=== PATIENT | female | born 1950 | race Caucasian/White ===

== ENCOUNTER 2023-01-06 13:46 | Observation (INO) ==
[2023-01-06] MEDS ORDERED: ASPIRIN CHEWABLE PO STA (13:55)
[2023-01-06] MEDS ORDERED: NITROSTAT SL PRN (13:56)
--- NOTE | 2023-01-06 14:00 | ED.PDOC ---
General ED Provider: Dr. RASHEED YADAV MD Chief Complaint: Chest Pain Stated Complaint: Chest pain that started 30 minutes ago 72-year-old female presents the ER via private vehicle for chest pain going into her neck and back that started 30 minutes ago. Patient states she was sitting watching TV. Describes it as an intense pain that makes her feel very lightheaded and short of breath. She has never had anything like this before. Has not recently eaten any food. Last meal was this morning. Denies any belching. No vomiting. Denies cardiac history of stress test. No recent travel history, prolonged immobilization. Time Seen by Provider: 01/06/23 13:55 Mode of Arrival: Wheelchair Information Source: Patient Primary Care Provider: ASHLIE WILLSON MD Nursing and Triage Documentation Reviewed and Agree: Yes Cardiovascular Complaint Exam Chest Pain Complaint/Exam Onset: Sudden Duration: 30 minutes ago Symptoms Are: Still present Timing: Constant Initial Severity: Severe Current Severity: Severe Location: Reports Midsternal Pain Radiates: Reports Back and Neck Character: Reports Dull and Aching Aggravating: Reports None Alleviating: Reports None Associated Signs and Symptoms: Reports Back pain, Dizziness and Short of air Related Surgical History: Reports None TAD Risk Factors: Reports None Pulmonary Embolism Risk Factors: Reports None Review of Systems Review Of Systems Constitutional: Reports No symptoms All Other Systems: Reviewed and Negative FOR[facility]LY [facility] Medical History Cellulitis and abscess of leg L03.119 - Cellulitis of unspecified part of limb (ICD-10) L02.419 - Cutaneous abscess of limb, unspecified (ICD-10) FH: cholecystectomy Z83.79 - Family history of other diseases of the digestive system (ICD-10) Family History Mother Acute rheumatoid arthritis Diabetes FATHER Cancer MATERNAL GRANDMOTHER Cancer Hypertension Social History Smoking and tobacco status: Former smoker Tobacco: How many years used: 10 How long ago did patient quit smokin years ago Second hand smoke exposure: No Alcohol intake: current Alcohol intake frequency: a few times a week Counseling given: No Substance use type: does not use Counseling given: No Counseling provided: none Amirah/uatsdin: SABIANISM Special amirah needs: No Agree to transfusion: No Household members: children Housing: house Marital status: S SINGLE Lives independently: Yes Number of children: 2 Number of grandchildren: 2 Highest education level completed: some college, no degree service: No long term: No Current occupational status: retired Current occupational exposures/hazards: No History of recent travel: Yes Do you think of yourself as: straight/heterosexual Current gender identity: female Seatbelt use: always Surgical History Gastric bypass status for obesity Z98.84 - Bariatric surgery status (ICD-10) H/O bladder repair surgery Z98.890 - Other specified postprocedural states (ICD-10) H/O breast biopsy Z98.890 - Other specified postprocedural states (ICD-10) H/O: hysterectomy Z90.710 - Acquired absence of both cervix and uterus (ICD-10) History of tonsillectomy and adenoidectomy Z98.890 - Other specified postprocedural states (ICD-10) Female Reproductive History Menstrual Hx Hysterectomy: Yes Hx Tubal Ligation: Yes Physical Exam Physical Exam Appearance: Reports Well-nourished Ill-appearing: None Pain Distress: Moderate Eyes: Reports EOMI ENT: Reports Ears normal Neck: Supple Respiratory: Reports Airway patent and Breath sounds clear Cardiovascular: Reports RRR, Pulses normal, No rub, No murmur and Other (Symmetric and palpable pulses bilateral radials, bilateral dorsalis pedis) GI/: Reports Soft and Nontender Musculoskeletal: Reports Normal strength, No edema and No calf tenderness Skin: Reports Warm, Dry and Normal color Neurological: Reports Oriented Psychiatric: Reports Affect appropriate Interpretation EKG Interpretation EKG Interpretation By: ED Physician Time of EKG #1: 13:54 Rate: Normal Rhythm: Sinus Ectopy: None Treichlers: NL ST Segment: Normal Interpretation: no ST elevation, no changes Time of EKG #2: 14:12 Rate: Normal Rhythm: Sinus Ectopy: None Treichlers: NL ST Segment: Normal EKG Interpretation: No change from earlier, no ST elevation Critical Care Note Critical Care Note Total Critical Care Time (mins): 30 Course Course 01/06/23 14:00 01/06/23 14:00 Orders, Labs, Meds: Lab Review 01/06/23 14:00 WBC 9.31 RBC 4.03 L Hgb 13.8 Hct 40.8 MCV 101.2 H MCH 34.2 H MCHC 33.8 RDW Coeff of Marco 13.9 Plt Count 237 Immature Gran % (Auto) 0.1 Neut % (Auto) 53.4 Lymph % (Auto) 35.0 Dougherty % (Auto) 8.5 Eos % (Auto) 2.6 Baso % (Auto) 0.4 Neut # (Auto) 5.0 Lymph # (Auto) 3.3 Dougherty # (Auto) 0.8 Eos # (Auto) 0.2 Baso # (Auto) 0.0 Immature Gran # (Auto) 0.0 Sodium 136.0 Potassium 4.49 Chloride 105.6 Carbon Dioxide 26.5 Anion Gap 8.39 BUN 9.6 Creatinine 0.59 L Estimated GFR (MDRD) 101.00 BUN/Creatinine Ratio 16.27 Glucose 91.3 Lactic Acid 1.28 Calcium 9.02 Total Bilirubin 0.53 AST 26.3 ALT 14.3 Alkaline Phosphatase 107.1 Troponin I < 0.012 NT-Pro-B Natriuret Pep 47 Total Protein 6.86 Albumin 3.92 Globulin 2.94 Albumin/Globulin Ratio 1.33 D-Dimer 1401.42 H Orders Category Date Time Status ADMIT OBSERVATION [PLACE PATIENT OBSERVATION] .TO ADMISSION 01/06/23 16:42 Ordered MEDSURG (MONITORED BED) EKG-(ED ONLY) Stat CARDIO 01/06/23 13:55 Completed EKG-(ED ONLY) Stat CARDIO 01/06/23 14:09 Completed NPO REMINDER: IMAGING ONCE CARE 01/06/23 14:50 Active TELEMETRY MONITORING TELE CARE 01/06/23 16:43 Ordered ED IV/MEDIPORT/POWERPORT .ONCE EMERGENCY 01/06/23 13:56 Active CBC W/ AUTO DIFF Stat LAB 01/06/23 14:00 Completed CMP [COMPREHENSIVE METABOLIC PANEL] Stat LAB 01/06/23 14:00 Completed D-DIMER Stat LAB 01/06/23 14:00 Completed ED PROBNP [NT-PROBNP(ED)] Stat LAB 01/06/23 14:00 Completed LACTIC ACID Stat LAB 01/06/23 14:00 Completed TROPONIN I Stat LAB 01/06/23 14:00 Completed 0.9 % Sodium Chloride [Saline Flush] Meds 01/06/23 13:55 Active 1 syr IVF PRN PRN Aspirin [Aspirin Chewable] Meds 01/06/23 13:55 Discontinued 324 mg PO ONCE STA Nitroglycerin [Nitrostat] Meds 01/06/23 13:56 Active 0.4 mg SL Q5MIN X 3 DOSES PRN CHEST, 1V AP ONLY Stat RADS 01/06/23 13:55 Completed CTA ANGIO CHEST Stat RADS 01/06/23 14:50 Completed Medications Generic Name Dose Route Start Last Admin Trade Name Freq PRN Reason Stop Dose Admin Nitroglycerin 0.4 mg 01/06/23 13:56 01/06/23 14:05 Nitroglycerin 0.4 Mg Tab.Subl SL 0.4 mg Q5MIN X 3 DOSES PRN Administration Chest Pain Sodium Chloride 1 syr 01/06/23 13:55 01/06/23 14:06 0.9% Sodium Chloride 10 Ml Disp.Syrin IVF 1 syr PRN PRN Administration To flush IV Discontinued Medications Generic Name Dose Route Start Last Admin Trade Name Freq PRN Reason Stop Dose Admin Aspirin 324 mg 01/06/23 13:55 01/06/23 14:04 Aspirin 81 Mg Tab.Chew PO 01/06/23 13:56 324 mg ONCE STA Administration Patient was given aspirin and 1 sublingual nitro. Took her pain from a 10 to a 2. Repeat EKG performed showing no changes. Nothing to suggest acute ischemia at this time. 3:10 PM Laboratory evaluation shows elevated D-dimer. With pain going into back we will proceed with CTA to rule out dissection. Pain continues to be controlled at a 2 out of 10. 3:15 PM Cardiac enzyme resulted and is negative. Still awaiting CTA. 4:44 PM Patient's laboratory evaluation is complete. CT scan demonstrates a lytic lesi on on T4, lytic lesion on a rib as well as some adenopathy in her left inferior hilar region of the lung. Patient is a non-smoker for the last 20 years but does have a smoking history. She does live with smokers who smoke outside. She states that up until COVID she was getting routine mammograms and colonoscopies and never had an abnormal study. She has been made aware of her results. She has also been made aware that we will not be performing any additional testing in the hospital regarding these findings due to the inability to work them up as an inpatient status. She understands this. However, given her chest pain and complete resolution with sublingual nitro, it is recommended that she be admitted to the hospital for rule out cardiac testing. She is agreeable to this. Vital Signs: Temp Pulse Resp BP Pulse Ox 01/06/23 13:58 98.1 F 88 20 187/99 H 98 JUSTINA Risk Score Age >/= 65: Yes >/= 3 CAD Risk Factors: No Known CAD (Stenosis >/= 50%): No ASA Use in Past 7 Days: No Severe Angina (>/= 2 episodes in 24 hours): No EKG ST Changes >/= 0.5mm: No Postive Cardiac Marker: No JUSTINA Total Score: 1 JUSTINA Risk Score: Risk Score Odds of by 30D 0 0.1 (0.1-0.2) 1 0.3 (0.2-0.3) 2 0.4 (0.3-0.5) 3 0.7 (0.6-0.9) 4 1.2 (1.0-1.5) 5 2.2 (1.9-2.6) 6 3.0 (2.5-3.6) 7 4.8 (3.8-6.1) Discharge Plan Discharge Patient Disposition: PLACED OBSERVATION Discharge Problem: Chest pain, Lytic bone lesions on xray Did you review [place] [employer]ENTICE for ALL controlled substances?: Not Applicable ED Provider: RASHEED YADAV Condition: Good Physician Progress Note: []
[2023-01-06 14:14] LABS: BASOPHILS % (AUTO) 0.4 % (0.0-3.0); EOSINOPHILS # (AUTO) 0.2 K/ul (0.0-0.7); EOSINOPHILS % (AUTO) 2.6 % (0.0-7.0); HEMATOCRIT 40.8 % (37.0-47.0); HEMOGLOBIN 13.8 g/dl (12.0-16.0); IMMATURE GRANULOCYTE % (AUTO) 0.1 % (0.0-5.0); LYMPHOCYTES # (AUTO) 3.3 K/uL (0.60-3.4); MEAN CORPUSCULAR HEMOGLOBIN 34.2 pg (27.0-31.0); MEAN CORPUSCULAR HGB CONC 33.8 (31.8-35.4); MEAN CORPUSCULAR VOLUME 101.2 fl (81.0-99.0); MONOCYTES # (AUTO) 0.8 K/uL (0.4-2.0); MONOCYTES % (AUTO) 8.5 (0-10); NEUTROPHILS % (AUTO) 53.4 % (42.2-75.2); PLATELET COUNT 237 10^3/uL (140-440); RDW COEFFICIENT OF VARIATION 13.9 % (11.6-14.8); RED BLOOD COUNT 4.03 10^6/ul (4.20-5.40); WHITE BLOOD COUNT 9.31 K/ul (4.6-10.2)
--- NOTE | 2023-01-06 14:45 | DI ---
EXAMINATION: AP CHEST RADIOGRAPH. HISTORY: Chest pain COMPARISON: 09/28/2022 FINDINGS: Minimal left basilar streaky opacity is identified. A medial right basilar nodular opacity is seen me asuring 1.0 cm. No pneumothorax or pleural effusion is seen. The cardiomediastinal silhouette is within normal limits. IMPRESSION: Minimal left basilar atelectasis and/or consolidation. 1.0 cm medial right basilar opacity could represent a vessel seen on-end or a pulmonary nodule. Foll ow-up CT recommended to exclude a pulmonary nodule.
[2023-01-06 15:00] LABS: ALANINE AMINOTRANSFERASE 14.3 U/L (0-35); ALBUMIN 3.92 g/dL (3.5-5.0); ALKALINE PHOSPHATASE 107.1 U/L (53-141); ASPARTATE AMINO TRANSFERASE 26.3 U/L (14-36); BILIRUBIN,TOTAL 0.53 mg/dL (0.2-1.3); BLOOD UREA NITROGEN 9.6 mg/dL (7-17); CALCIUM 9.02 mg/dL (8.4-10.2); CARBON DIOXIDE 26.5 mmol/L (22-30.0); CHLORIDE 105.6 mmol/L (98-107); CREATININE 0.59 mg/dL (0.60-1.30); GLUCOSE 91.3 mg/dL (74-106); POTASSIUM 4.49 mmol/L (3.5-5.1); TOTAL PROTEIN 6.86 g/dL (6.3-8.2)
[2023-01-06 15:13] LABS: TROPONIN I < 0.012 ng/ml (0.0000-0.120)
--- NOTE | 2023-01-06 16:31 | CT ---
EXAM: CHEST CT ANGIOGRAM WITH IV CONTRAST (AORTA) HISTORY: Chest pain. Radiating to the back TECHNIQUE: CTA acquisition of the chest from the thoracic inlet to the upper abdomen following IV con trast administration timed to filling of the aorta. IV Contrast: None. 3D/MIP/VR images were utilized. CT Dose Reduction Techniques Employed: Yes. COMPARISON: Chest x-ray dated 04/08/2023. FINDINGS: AORTA: No acute aortic pathology. Mild calcified atherosclerotic plaque. -Sinuses of Valsalva: 3.3 cm. -Ascendin.5 cm. -Arch: 2.4 cm. Proximal branch vessels are normal in configuration without significant stenosis. -Proximal Descendin.4 cm. -Distal Descendin.3 cm. CHEST: Lines, Tubes, Devices: None. Lung Parenchyma and Airways: Central airways are patent without endobronchial lesion. No focal conso lidation or interstitial disease. Minimal linear atelectasis along the left major fissure. No suspi cious pulmonary nodule. Pleural Space: No pleural effusion or thickening. No pneumothorax. Thoracic Inlet, Mediastinum, and Jinny: Thyroid gland is normal. Confluent lymphadenopathy or soft ti ssue in the left hilum superiorly surrounding the distal left main pulmonary artery and the left inte rlobar artery. Soft tissue at this site measures up to 2.1 cm. There is associated narrowing of the left interlobar artery and possibly the left lower lobe bronchus. There is atelectasis or mass william uring 2.8 x 3.4 cm in the left lower lobe inferior to the left hilum anteriorly. Heart, Vessels, and Pericardium: Pulmonary arteries are well opacified and demonstrate no evidence of pulmonary embolism. The heart chambers are not enlarged. There is no pericardial effusion or thicke lesley. There is coronary artery calcification. Bones and Soft Tissues: There are degenerative changes of the spine. There is a lytic lesion with so ft tissue mass measuring 2.1 x 1.3 cm arising from the anterior aspect of the right fourth rib on axi al image 58. There is also a large lytic lesion in the T4 vertebral body measuring 1.7 cm on axial i mage 32 and sagittal image 35 with cortical breakthrough inferiorly and posteriorly consistent with p athologic fracture. Minimal displacement of fracture fragments. Minimal loss of height at this leve l. No other lytic lesions visualized. Chest wall soft tissues are unremarkable. Upper Abdomen: Normal visualized portions of the liver, spleen, and adrenals. Surgical clips from p revious cholecystectomy. Prior gastric surgery with otilia visualized. IMPRESSION: 1. Normal CT thoracic aorta angiogram with no evidence of aortic dissection. 2. No evidence of pulmonary embolism. 3. Lytic lesion of T4 vertebral body with minimally displaced pathologic fracture suspicious for rj plasm. 4. Lytic lesion with soft tissue mass involving right fourth rib, suspicious for neoplasm. 5. No confluent lymphadenopathy or soft tissue in the left hilum superiorly and possible confluent m ass in the left infrahilar region measuring up to 3.4 cm. Findings suspicious for neoplasm. 6. Minimal linear atelectasis along the left major fissure. 7. Coronary artery calcification and atherosclerosis. 8. Degenerative changes of the spine. 9. Previous cholecystectomy and gastric surgery. 10. Otherwise unremarkable CT scan of the chest. COMMUNICATION (CRITICAL RESULT): Findings were communicated with Dr. Galan on 01/06/2023 at 1612 [facility] by Frantz Gomez MD. All CT scans are performed using dose optimization techniques as appropriate to the performed exam an d include at least one of the following: Automated exposure control, adjustment of the mA and/or kV according t o size, and the use of iterative reconstruction technique.
[2023-01-06] MEDS ORDERED: TYLENOL PO PRN (17:35)
[2023-01-06 18:14] VITALS: BMI 28.8
[2023-01-06] MEDS ORDERED: MORPHINE 2 MG/ML SYRINGE IVP ONE (20:22)
[2023-01-07 05:01] LABS: BASOPHILS % (AUTO) 0.6 % (0.0-3.0); EOSINOPHILS # (AUTO) 0.2 K/ul (0.0-0.7); EOSINOPHILS % (AUTO) 2.3 % (0.0-7.0); HEMATOCRIT 38.1 % (37.0-47.0); HEMOGLOBIN 12.7 g/dl (12.0-16.0); IMMATURE GRANULOCYTE % (AUTO) 0.1 % (0.0-5.0); LYMPHOCYTES # (AUTO) 2.5 K/uL (0.60-3.4); LYMPHOCYTES % (AUTO) 36.7 (10.0-50.0); MEAN CORPUSCULAR HEMOGLOBIN 34.4 pg (27.0-31.0); MEAN CORPUSCULAR HGB CONC 33.3 (31.8-35.4); MEAN CORPUSCULAR VOLUME 103.3 fl (81.0-99.0); MONOCYTES # (AUTO) 0.8 K/uL (0.4-2.0); MONOCYTES % (AUTO) 10.8 (0-10); NEUTROPHILS # (AUTO) 3.4 K/ul (2.0-6.9); NEUTROPHILS % (AUTO) 49.5 % (42.2-75.2); PLATELET COUNT 180 10^3/uL (140-440); RDW COEFFICIENT OF VARIATION 13.9 % (11.6-14.8); RED BLOOD COUNT 3.69 10^6/ul (4.20-5.40); WHITE BLOOD COUNT 6.93 K/ul (4.6-10.2)
[2023-01-07 05:13] LABS: ALANINE AMINOTRANSFERASE 13.6 U/L (0-35); ALBUMIN 3.59 g/dL (3.5-5.0); ALKALINE PHOSPHATASE 104.8 U/L (53-141); ASPARTATE AMINO TRANSFERASE 26.7 U/L (14-36); BILIRUBIN,TOTAL 0.75 mg/dL (0.2-1.3); BLOOD UREA NITROGEN 7.5 mg/dL (7-17); CALCIUM 8.95 mg/dL (8.4-10.2); CARBON DIOXIDE 30.4 mmol/L (22-30.0); CHLORIDE 101.3 mmol/L (98-107); CHOLESTEROL 185.5 mg/dL (0-200); CREATININE 0.62 mg/dL (0.60-1.30); GLUCOSE 100.4 mg/dL (74-106); HDL CHOLESTEROL 97.2 mg/dL (35-80); POTASSIUM 4.15 mmol/L (3.5-5.1); TOTAL PROTEIN 6.43 g/dL (6.3-8.2); TRIGLYCERIDES 67.3 mg/dL (0-150)
[2023-01-07] MEDS ORDERED: NORCO 10-325 PO STA ×2 (09:19→09:34)
[2023-01-07] MEDS ORDERED: ROBAXIN PO PRN (09:19)
[2023-01-07] MEDS: ZOFRAN 4 MG/2 ML IVP PRN (12:18)
[2023-01-07] MEDS ORDERED: LACTATED RINGERS 1,000 ML IV STA (13:40)
--- NOTE | 2023-01-07 13:41 | PCM ---
Date of Service Date Seen by Provider: 01/07/23 Time Seen by Provider: 08:30 Admit Day/Time Admission Date: 01/06/23 Admission Time: 16:42 Reason for Admission Chief Complaint: CHEST PAIN Hospital Provider Hospital Provider: BRANDON JEFF PA-C, [facility] [place] Primary Care Physician: ASHLIE WILLSON MD History of Present Illness History of Present Illness: Patient is a 72 year old female with minimal past medical history who presented to the ER for chest pain, upper back pain, and radiating cp to right side. There was concern for dissection and d dimer was elevated so cta was ordered. CTA showed no PE or dissection. However she does have lytic lesions, pathological fracture of T4, and soft tissue masses. Report as below. She states she's been having increasing pain for the past month but yesterday it was "crushing." She is feeling very anxious and upset regarding her findings. Labs unremarkable. Pain is better as of this morning. Case Discussed With Case Discussed With: Patient's case was discussed with the ER Physicians, Dr. Chel Galan. [facility] Medical History Cellulitis and abscess of leg L03.119 - Cellulitis of unspecified part of limb (ICD-10) L02.419 - Cutaneous abscess of limb, unspecified (ICD-10) FH: cholecystectomy Z83.79 - Family history of other diseases of the digestive system (ICD-10) Surgical History Gastric bypass status for obesity Z98.84 - Bariatric surgery status (ICD-10) H/O bladder repair surgery Z98.890 - Other specified postprocedural states (ICD-10) H/O breast biopsy Z98.890 - Other specified postprocedural states (ICD-10) H/O: hysterectomy Z90.710 - Acquired absence of both cervix and uterus (ICD-10) History of tonsillectomy and adenoidectomy Z98.890 - Other specified postprocedural states (ICD-10) Family History Mother Acute rheumatoid arthritis Diabetes FATHER Cancer MATERNAL GRANDMOTHER Cancer Hypertension Social History Smoking and tobacco status: Former smoker Tobacco: How many years used: 10 How long ago did patient quit smokin years ago Second hand smoke exposure: No Alcohol intake: current Alcohol intake frequency: a few times a week Counseling given: No Substance use type: does not use Counseling given: No Counseling provided: none Amirah/baptism: JAINISM Special amirah needs: No Agree to transfusion: No Household members: children Housing: house Marital status: S SINGLE Lives independently: Yes Number of children: 2 Number of grandchildren: 2 Highest education level completed: some college, no degree service: No senior care: No Current occupational status: retired Current occupational exposures/hazards: No History of recent travel: Yes Do you think of yourself as: straight/heterosexual Current gender identity: female Seatbelt use: always Allergies Allergies Allergy/AdvReac Type Severity Reaction Status Date / Time theodrenaline AdvReac Intermediate Anxiety Verified 01/06/23 13:57 Current Medications Home Medications 1 [No Reported Medications] 01/06/23 [History Confirmed 01/06/23 Last Taken Unknown] Home Acetaminophen (Acetaminophen 325 Mg Tablet) 650 mg PO Q4H PRN PRN Reason: Mild Pain Hydrocodone Bitart/Acetaminophen (Hydrocodone Bit/Acetaminophen 5/325 Mg Tablet) 1 tab PO Q6HR PRN PRN Reason: Pain Docusate Sodium (Docusate Sodium 100 Mg Capsule) 100 mg PO BID [facility] Enoxaparin Sodium (Enoxaparin Sodium 40 Mg/0.4 Ml Syr) 40 mg SUBCUT DAILY [facility] Lactated Ringer's (Lactated Ringers) 1,000 mls @ 200 mls/hr IV BOLUS STA Stop: 01/07/23 18:39 Last Admin: 01/07/23 15:31 Dose: 200 mls/hr Methocarbamol (Methocarbamol 500 Mg Tablet) 500 mg PO 3-4XD PRN PRN Reason: muscle spasm Last Admin: 01/07/23 09:38 Dose: 500 mg Nitroglycerin (Nitroglycerin 0.4 Mg Tab.Subl) 0.4 mg SL Q5MIN X 3 DOSES PRN PRN Reason: Chest Pain Last Admin: 01/06/23 14:05 Dose: 0.4 mg Ondansetron HCl (Ondansetron Hcl/Pf 4 Mg/2 Ml Sdv) 4 mg IVP Q6H PRN PRN Reason: Nausea / Vomiting Last Admin: 01/07/23 12:18 Dose: 4 mg Polyethylene Glycol (Polyethylene Glycol 17 Gm Powd.Pack) 17 gm PO DAILY TEJAS Sodium Chloride (0.9% Sodium Chloride 10 Ml Disp.Syrin) 1 syr IVF PRN PRN PRN Reason: To flush IV Last Admin: 01/06/23 14:06 Dose: 1 syr Discontinued Medications Hydrocodone Bitart/Acetaminophen (Hydrocodone Bit/Acetaminophen 10/325 Mg Tablet) 1 tab PO ONCE STA Stop: 01/07/23 09:35 Last Admin: 01/07/23 09:38 Dose: 1 tab Aspirin (Aspirin 81 Mg Tab.Chew) 324 mg PO ONCE STA Stop: 01/06/23 13:56 Last Admin: 01/06/23 14:04 Dose: 324 mg Morphine Sulfate (Morphine Sulfate 2 Mg/Ml Syringe) 2 mg IVP ONCE ONE Stop: 01/06/23 20:23 Last Admin: 01/06/23 20:45 Dose: 2 mg Review of Systems Constitutional: Denies Fever, Fatigue, Recent Weight Loss, Recent Weight Gain, Chills or Weakness Head: Reports Normocephalic and Atraumatic Eyes: Denies Vision Changes Throat: Denies Sore Throat or Difficulty Swallowing Cardiovascular: Reports Chest pain, Chest Pressure and High Blood Pressure; Denies Edema or Syncope Respiratory: Reports Cough and Shortness of air Gastrointestinal: Denies Nausea, Vomiting, Diarrhea or Abdominal pain Genitourinary: Denies Dysuria or Frequency Dermatologic: Denies Rashes Neurological: Denies Headache, Dizziness, Syncope or Seizure Psychiatric: Reports Anxiety Physical examination Most Recent Vital Signs: Most Recent Vital Signs Temperature 97.7 F 01/07/23 13:31 Temperature Source Oral 01/07/23 13:31 Temperature Source Oral 01/06/23 13:58 Pulse Rate 75 01/07/23 13:31 Respiratory Rate 16 01/07/23 13:31 Blood Pressure 140/78 01/07/23 13:33 Blood Pressure Mean 98 01/07/23 13:33 Blood Pressure Right Arm 163/82 01/06/23 17:56 Blood Pressure Location Right Arm 01/07/23 13:33 Blood Pressure Position Sitting 01/07/23 13:33 O2 Sat by Pulse Oximetry 96 01/07/23 13:31 Oxygen Delivery Method Room Air 01/07/23 13:33 Height 5 ft 6 in 01/06/23 17:56 Weight 178 lb 8 oz 01/06/23 17:56 Telemetry Type Remote Telemetry 01/07/23 13:00 Telemetry Monitoring Continues 01/07/23 13:00 Telemetry Heart Rate 74 01/07/23 13:00 EKG LA Interval 0.18 01/07/23 13:00 EKG QRS Interval 0.04 L 01/07/23 13:00 EKG QT Interval 0.31 01/06/23 19:00 Telemetry Strip Reading SR 01/07/23 13:00 Appearance: Positive Well-appearing, Well-nourished, No Apparent Distress (Anxious ) and Alert and Oriented x3 Skin: Positive [place], Warm, Good Turgor and Good Color; Negative Rashes HEENT: Positive Normocephalic and Atraumatic Neck: Positive Supple and Midline Trachea Chest/Lungs: Positive Clear to Auscultation Bilaterally; Negative Rales, Rhonci or Wheezes Heart: Positive RRR GI/: Positive Soft, Nontender, Bowel Sounds Normal and No Distention Extremities: Positive Other (+pain with palpation of thoracic spine and right paraspinal area. ) Neurological: Positive Cranial Nerves Intact, Alert, Oriented and Muscle Strength 5/5 in Upper and Lower Extremities Bilaterally Psychiatric: Positive Oriented x4, Appropriate Mood, Appropriate Affect and Normal Insight Labs This Visit Labs This Visit: Labs This Visit 01/06/23 01/06/23 01/06/23 14:00 15:00 22:55 WBC 9.31 RBC 4.03 L Hgb 13.8 Hct 40.8 MCV 101.2 H MCH 34.2 H MCHC 33.8 RDW Coeff of Marco 13.9 Plt Count 237 Immature Gran % (Auto) 0.1 Neut % (Auto) 53.4 Lymph % (Auto) 35.0 [place] % (Auto) 8.5 Eos % (Auto) 2.6 Baso % (Auto) 0.4 Neut # (Auto) 5.0 Lymph # (Auto) 3.3 [place] # (Auto) 0.8 Eos # (Auto) 0.2 Baso # (Auto) 0.0 Immature Gran # (Auto) 0.0 Sodium 136.0 Potassium 4.49 Chloride 105.6 Carbon Dioxide 26.5 Anion Gap 8.39 BUN 9.6 Creatinine 0.59 L Estimated GFR (MDRD) 101.00 BUN/Creatinine Ratio 16.27 Glucose 91.3 Hemoglobin A1c Lactic Acid 1.28 Calcium 9.02 Total Bilirubin 0.53 AST 26.3 ALT 14.3 Alkaline Phosphatase 107.1 Troponin I < 0.012 < 0.012 < 0.012 NT-Pro-B Natriuret Pep 47 Total Protein 6.86 Albumin 3.92 Globulin 2.94 Albumin/Globulin Ratio 1.33 Triglycerides Cholesterol LDL Cholesterol, Calc VLDL Cholesterol HDL Cholesterol Cholesterol/HDL Ratio D-Dimer 1401.42 H 01/07/23 04:55 WBC 6.93 RBC 3.69 L Hgb 12.7 Hct 38.1 MCV 103.3 H MCH 34.4 H MCHC 33.3 RDW Coeff of Marco 13.9 Plt Count 180 Immature Gran % (Auto) 0.1 Neut % (Auto) 49.5 Lymph % (Auto) 36.7 [place] % (Auto) 10.8 H Eos % (Auto) 2.3 Baso % (Auto) 0.6 Neut # (Auto) 3.4 Lymph # (Auto) 2.5 [place] # (Auto) 0.8 Eos # (Auto) 0.2 Baso # (Auto) 0.0 Immature Gran # (Auto) 0.0 Sodium 135.0 Potassium 4.15 Chloride 101.3 Carbon Dioxide 30.4 H Anion Gap 7.45 BUN 7.5 Creatinine 0.62 Estimated GFR (MDRD) 95.00 BUN/Creatinine Ratio 12.09 Glucose 100.4 Hemoglobin A1c 5.19 Lactic Acid Calcium 8.95 Total Bilirubin 0.75 AST 26.7 ALT 13.6 Alkaline Phosphatase 104.8 Troponin I < 0.012 NT-Pro-B Natriuret Pep Total Protein 6.43 Albumin 3.59 Globulin 2.84 Albumin/Globulin Ratio 1.26 Triglycerides 67.3 Cholesterol 185.5 LDL Cholesterol, Calc 75 VLDL Cholesterol 13 HDL Cholesterol 97.2 H Cholesterol/HDL Ratio 1.9 L D-Dimer Imaging Imaging: EXAMINATION: AP CHEST RADIOGRAPH. HISTORY: Chest pain COMPARISON: 09/28/2022 FINDINGS: Minimal left basilar streaky opacity is identified. A medial right basilar nodular opacity is seen measuring 1.0 cm. No pneumothorax or pleural effusion is seen. The cardiomediastinal silhouette is within normal limits. IMPRESSION: Minimal left basilar atelectasis and/or consolidation. 1.0 cm medial right basilar opacity could represent a vessel seen on-end or a pulmonary nodule. Follow-up CT recommended to exclude a pulmonary nodule. EXAM: CHEST CT ANGIOGRAM WITH IV CONTRAST (AORTA) HISTORY: Chest pain. Radiating to the back TECHNIQUE: CTA acquisition of the chest from the thoracic inlet to the upper abdomen following IV contrast administration timed to filling of the aorta. IV Contrast: None. 3D/MIP/VR images were utilized. CT Dose Reduction Techniques Employed: Yes. COMPARISON: Chest x-ray dated 04/08/2023. FINDINGS: AORTA: No acute aortic pathology. Mild calcified atherosclerotic plaque. -Sinuses of Valsalva: 3.3 cm. -Ascendin.5 cm. -Arch: 2.4 cm. Proximal branch vessels are normal in configuration without significant stenosis. -Proximal Descendin.4 cm. -Distal Descendin.3 cm. CHEST: Lines, Tubes, Devices: None. Lung Parenchyma and Airways: Central airways are patent without endobronchial lesion. No focal consolidation or interstitial disease. Minimal linear atelectasis along the left major fissure. No suspicious pulmonary nodule. Pleural Space: No pleural effusion or thickening. No pneumothorax. Thoracic Inlet, Mediastinum, and Jinny: Thyroid gland is normal. Confluent lymphadenopathy or soft tissue in the left hilum superiorly surrounding the distal left main pulmonary artery and the left interlobar artery. Soft tissue at this site measures up to 2.1 cm. There is associated narrowing of the left interlobar artery and possibly the left lower lobe bronchus. There is atelectasis or mass measuring 2.8 x 3.4 cm in the left lower lobe inferior to the left hilum anteriorly. Heart, Vessels, and Pericardium: Pulmonary arteries are well opacified and demonstrate no evidence of pulmonary embolism. The heart chambers are not enlarged. There is no pericardial effusion or thickening. There is coronary artery calcification. Bones and Soft Tissues: There are degenerative changes of the spine. There is a lytic lesion with soft tissue mass measuring 2.1 x 1.3 cm arising from the ant erior aspect of the right fourth rib on axial image 58. There is also a large lytic lesion in the T4 vertebral body measuring 1.7 cm on axial image 32 and sagittal image 35 with cortical breakthrough inferiorly and posteriorly consistent with pathologic fracture. Minimal displacement of fracture fragments. Minimal loss of height at this level. No other lytic lesions visualized. Chest wall soft tissues are unremarkable. Upper Abdomen: Normal visualized portions of the liver, spleen, and adrenals. Surgical clips from previous cholecystectomy. Prior gastric surgery with otilia visualized. IMPRESSION: 1. Normal CT thoracic aorta angiogram with no evidence of aortic dissection. 2. No evidence of pulmonary embolism. 3. Lytic lesion of T4 vertebral body with minimally displaced pathologic fracture suspicious for neoplasm. 4. Lytic lesion with soft tissue mass involving right fourth rib, suspicious for neoplasm. 5. No confluent lymphadenopathy or soft tissue in the left hilum superiorly and possible confluent mass in the left infrahilar region measuring up to 3.4 cm. Findings suspicious for neoplasm. 6. Minimal linear atelectasis along the left major fissure. 7. Coronary artery calcification and atherosclerosis. 8. Degenerative changes of the spine. 9. Previous cholecystectomy and gastric surgery. 10. Otherwise unremarkable CT scan of the chest. COMMUNICATION (CRITICAL RESULT): Findings were communicated with Dr. Galan on 01/06/2023 at 1612 hours by Frantz Gomez MD. Review Statement Review Statement: I have independently reviewed and interpreted the labs/EKGs/imaging that were ordered by the ER provider. I have reviewed all outside records that are available currently in our EMR including imaging/notes/labs from previous visits. Plan Plan: 1. Chest pain - EKGs and trops negative. Low heart score. The pain she describes correlates with her CTA findings/lytic lesions. Wheeler and robaxin ordered for pain. 2. Lytic lesions of T4 with pathological fracture and right 4th rib with soft tissue mass - Will need oncology referral. 3. Confluent lymphadenopathy or soft tissue in the left hilum superiorly and possible confluent mass in the left infrahilar region measuring up to 3.4 cm - Referral made to Dr. Pineda, cardiothoracic surgeon for biopsy. CT abd/pelvis ordered to further investigate. Patient requests to stay another night as she is very overwhelmed and doesn't feel comfortable with discharge at this time. DVT Prophylaxis: Lovenox. Time Spent: Greater than 80 minutes spent with patient, 50% of the time spent with this patient was devoted to counseling and coordination of care. [facility] FULL CODE minutes spent discussing advance care planning. Admit to: Obs Discussed Plan of Care with Dr. Magalys Yu. Medications Medication Orders: Medications Ordered Category Date Time Status 0.9 % Sodium Chloride [Saline Flush] Meds 01/06/23 13:55 Active 1 syr IVF PRN PRN Acetaminophen [Tylenol] Meds 01/06/23 17:35 Active 650 mg PO Q4H PRN Docusate Sodium [Colace] Meds 01/07/23 21:00 Ordered 100 mg PO BID Hydrocodone Bit/Acetaminophen [Wheeler 5-325] Meds 01/07/23 13:38 Ordered 1 tab PO Q6HR PRN Methocarbamol [Robaxin] Meds 01/07/23 09:19 Active 500 mg PO 3-4XD PRN Nitroglycerin [Nitrostat] Meds 01/06/23 13:56 Active 0.4 mg SL Q5MIN X 3 DOSES PRN Ondansetron HCl/Pf [Zofran 4 mg/2 ml] Meds 01/06/23 17:35 Active 4 mg IVP Q6H PRN Polyethylene Glycol 3350 [Miralax] Meds 01/08/23 09:00 Ordered 17 gm PO DAILY Ringers Lactated Solution [Lactated Ringers] 1,000 ml Meds 01/07/23 13:40 Ordered IV BOLUS
[2023-01-07] MEDS: LOVENOX SUBCUT SCH (15:44)
--- NOTE | 2023-01-07 16:02 | CT ---
EXAM: CT HEAD WITHOUT AND WITH INTRAVENOUS CONTRAST 01/07/2023. SAGITTAL AND CORONAL REFORMATTED IM AGES OBTAINED HISTORY: Question intracranial metastasis COMPARISON: None. FINDINGS: There is no evidence of intracranial hemorrhage. The midline is maintained. There is no h ydrocephalus. Generalized atrophy. Chronic small vessel ischemic change. There is no pathologic po stcontrast enhancement. No cerebellar tonsillar ectopia. Evaluation of the calvarium shows no fract ure. The mastoid air cells are normally pneumatized. IMPRESSION: No acute intracranial abnormality. No evidence of intracranial metastasis. All CT scans are performed using dose optimization techniques as appropriate to the performed exam an d include at least one of the following: Automated exposure control, adjustment of the mA and/or kV according t o size, and the use of iterative reconstruction technique.
--- NOTE | 2023-01-07 16:11 | CT ---
EXAM: CT ABDOMEN AND PELVIS WITH CONTRAST HISTORY: Suspected intra-abdominal neoplasm. TECHNIQUE: CT acquisition of the abdomen and pelvis with IV contrast administration. CT dose reducti on techniques performed: Yes. Coronal and sagittal reconstructions were performed. COMPARISON: CT chest 01/06/2023 FINDINGS: Left hilar/infrahilar mass noted. Please see CT report from 1 day prior regarding findings above the diaphragm. Hepatic steatosis. Focal fat along the fissure for the falciform ligament. Cholecystec eric. Normal spleen and pancreas. Normal adrenal glands and kidneys. Normal urinary bladder. Hyste rectomy. No free fluid or free gas. Severe calcific atherosclerosis. Multiple prominent lymph node s in the retroperitoneum, largest in the left superior periaortic region measuring up to 1.7 cm. Post surgical changes in the stomach. No pathologically dilated small bowel loops. No evidence of acute appendicitis. Extensive colonic diverticulosis without focal diverticulitis. Right iliac wing lytic bone metastasis measuring up to 2.6 cm. Left proximal femoral shaft 1.7 cm lytic metastasis. Impression: Please see CT chest report 1 day prior for findings above the diaphragm. Several lytic bone metastases are seen including right iliac wing and left proximal femoral shaft; wo uld recommend non-weightbearing status. Left retroperitoneal lymph node, suspicious for metastasis. Hepatic steatosis and colonic diverticulosis. Critical findings discussed with the patients nurse Celestino by Dr. Carter via telephone on 4:00 p.m. on 01/07/2023. All CT scans are performed using dose optimization techniques as appropriate to the performed exam an d include at least one of the following: Automated exposure control, adjustment of the mA and/or kV according t o size, and the use of iterative reconstruction technique.
[2023-01-07] MEDS: NORCO 5-325 PO PRN ×2 (16:47→23:59)
[2023-01-07] MEDS ORDERED: ATIVAN PO PRN (18:28)
[2023-01-07] MEDS: COLACE PO SCH (20:40)
[2023-01-08 05:39] LABS: BASOPHILS % (AUTO) 0.5 % (0.0-3.0); EOSINOPHILS # (AUTO) 0.1 K/ul (0.0-0.7); EOSINOPHILS % (AUTO) 2.5 % (0.0-7.0); HEMATOCRIT 38.1 % (37.0-47.0); HEMOGLOBIN 12.2 g/dl (12.0-16.0); IMMATURE GRANULOCYTE % (AUTO) 0.2 % (0.0-5.0); LYMPHOCYTES # (AUTO) 2.2 K/uL (0.60-3.4); LYMPHOCYTES % (AUTO) 37.9 (10.0-50.0); MEAN CORPUSCULAR HEMOGLOBIN 33.4 pg (27.0-31.0); MEAN CORPUSCULAR VOLUME 104.4 fl (81.0-99.0); MONOCYTES # (AUTO) 0.6 K/uL (0.4-2.0); MONOCYTES % (AUTO) 9.7 (0-10); NEUTROPHILS # (AUTO) 2.8 K/ul (2.0-6.9); NEUTROPHILS % (AUTO) 49.2 % (42.2-75.2); PLATELET COUNT 194 10^3/uL (140-440); RDW COEFFICIENT OF VARIATION 14.1 % (11.6-14.8); RED BLOOD COUNT 3.65 10^6/ul (4.20-5.40); WHITE BLOOD COUNT 5.67 K/ul (4.6-10.2)
[2023-01-08] MEDS: NORCO 5-325 PO PRN ×2 (05:46→12:29)
[2023-01-08 06:00] LABS: ALANINE AMINOTRANSFERASE 11.6 U/L (0-35); ALBUMIN 3.44 g/dL (3.5-5.0); ALKALINE PHOSPHATASE 90.1 U/L (53-141); ASPARTATE AMINO TRANSFERASE 20.2 U/L (14-36); BILIRUBIN,TOTAL 0.49 mg/dL (0.2-1.3); BLOOD UREA NITROGEN 5.8 mg/dL (7-17); CARBON DIOXIDE 30.6 mmol/L (22-30.0); CHLORIDE 101.6 mmol/L (98-107); CREATININE 0.68 mg/dL (0.60-1.30); GLUCOSE 95.4 mg/dL (74-106); POTASSIUM 4.27 mmol/L (3.5-5.1); SODIUM 135.9 mmol/L (134.5-145); TOTAL PROTEIN 6.15 g/dL (6.3-8.2)
[2023-01-08] MEDS: COLACE PO SCH (08:27)
[2023-01-08] MEDS: LOVENOX SUBCUT SCH (08:27)
[2023-01-08] MEDS ORDERED: MIRALAX PO SCH (09:00)
[2023-01-08] MEDS: ZOFRAN 4 MG/2 ML IVP PRN (09:02)
--- NOTE | 2023-01-08 09:10 | ECHO2D ---
Date of Exam: 01/07/2023 Ordering Physician: HOSPITALIST/DR. WILLSON Room #: 116 Reason for Echo: CHEST PAIN M-Mode Normal Adult Results LV Dimensions Normal Adult Results AoV Opening excursions >1.6 >1.6 LVEDD-base- 3.5-5.8 5.0 Ao root dimensions 2.0-3.7 3.6 LVESD-base- 3.1-4.6 L. Atrium dimensions 1.9-3.8 4.3 Post. Wall thickness 0.8-1.1 1.1 IV septum (thickness) 0.7-1.2 1.2 Post. Wall excursion 0.72-1.3 NORMAL Septal motion NORMAL Systolic motion R. Ventricular cavity 1.5-2.0 NORMAL LVEF 60% 69% Paradoxical septal wall motion NORMAL 2-D : ENLARGED LEFT ATRIAL CAVITY, NORMAL VALVES--NORMAL LEFT VENTRICLE SIZE AND LEFT VENTRICLE CONTRACTILITY--NO THROMBUS, NO EFFUSION M-MODE: MV: E>A WAVE AV: NORMAL TV: NORMAL PV: NORMAL CHAMBER SIZE: ENLARGED LEFT ATRIAL CAVITY WALL MOTION: NORMAL PERICARDIUM: NORMAL INTERPRETATION: 1. BORDERLINE LEFT VENTRICLE HYPERTROPHY WITH ENLARGED LEFT ATRIAL CAVITY 2. NORMAL VALVES 3. NORMAL LEFT VENTRICLE SIZE AND LEFT VENTRICLE CONTRACTILITY 4. EVIDENCE OF DIASTOLIC DYSFUNCTION MTDD
[2023-01-08 10:15] VITALS: BP 140/71; PULSE 84; RESP 16; TEMP 97.6
--- NOTE | 2023-01-08 10:39 | DCSUM ---
Admission Date Admission Date: 01/06/23 Discharge Date Discharge Date: 01/08/23 Admission Diagnosis Admission Diagnosis: 1. Chest pain Discharge Diagnosis Discharge Diagnosis: 1. Chest pain, resolved 2. Lytic lesions of T4 with pathological fracture and right 4th rib with soft tissue mass 3. Confluent lymphadenopathy or soft tissue in the left hilum superiorly and possible confluent mass in the left infrahilar region measuring up to 3.4 cm 4. Lytic lesions of right iliac wing and left proximal femur Hospital Provider Hospital Provider: BRANDON JEFF PA-C, [facility] [place] Primary Care Physician Primary Care Physician: ASHLIE WILLSON MD Summary of History and Physical Summary of History and Physical: Patient is a 72 year old female with minimal past medical history who presented to the ER for chest pain, upper back pain, and radiating cp to right side. There was concern for dissection and d dimer was elevated so cta was ordered. CTA showed no PE or dissection. However she does have lytic lesions, pathological fracture of T4, and soft tissue masses. Report as below. She states she's been having increasing pain for the past month but yesterday it was "crushing." She is feeling very anxious and upset regarding her findings. Labs unremarkable. Pain is better as of this morning. Hospital Course Subjective: Discussed in depth patient's lytic lesions. Discussed that her upper back pain and chest pain that radiates towards her right side correlates with the CT findings. She has a low risk is regarding her heart score. On 01/07 patient was feeling very overwhelmed that this was an ominous sign for her. She requested to stay overnight to let things process as she did not feel comfortable with discharge. She also was worried that she was going to have that excruciating pain again. So since she was here past 24 hours and able to have another CT scan with contrast a CT head and CT abdomen pelvis were ordered. CT head does not show any sign of mets. CT abdomen and pelvis does show lytic lesions of the right iliac wing and lytic lesions of the left proximal femur. With concern of a high risk of pathological fracture I spoke with the orthopedic [place]. The nurse consulted with Dr. Corona regarding patient's situation and CT findings. He recommended nonweightbearing status until further notice. He also would like to follow her in clinic and offered an appointment on Wednesday at 1:20 with his ADE Guy. Patient was set up for a wheelchair. Therapy worked with her on transferring without bearing weight on that side. Imaging was given to patient on a disc. She was also referred to Dr. Pineda a cardiothoracic surgeon regarding the hilar mass and soft tissue masses. Imaging was overnighted to him per his request. They are supposed to call her with an appointment. I also spoke with Dr. Willson, PCP, regarding the patient's findings (before CT abdomen pelvis and head) and he is going to see her next week as well. I will provide her with Bandana in the meantime for pain control. I will also send her in some Zofran as it tends to make her little nauseated. We discussed prophylactically treating for constipation since she is shaun to narcotics. Discussed narcotic safety. Patient is agreeable to plan of care. All questions answered and a significant amount of time was spent with this patient. Appearance: Pleasant, No Apparent Distress, Alert, Well-appearing and Well- nourished HEENT: MMM and Supple CVS: No Murmur, No Rubs and No Gallop Abdomen: Soft, Non-Tender and No Distention Respiratory: No Accessory Muscle Use Extremities: No Edema Vital Signs: Most Recent Vital Signs Temperature 97.6 F 01/08/23 10:00 Temperature Source Oral 01/08/23 10:00 Temperature Source Oral 01/06/23 13:58 Pulse Rate 84 01/08/23 10:00 Respiratory Rate 16 01/08/23 10:00 Blood Pressure 140/71 01/08/23 10:00 Blood Pressure Mean 94 01/08/23 10:00 Blood Pressure Right Arm 163/82 01/06/23 17:56 Blood Pressure Location Left Arm 01/08/23 10:00 Blood Pressure Position Supine 01/08/23 10:00 O2 Sat by Pulse Oximetry 97 01/08/23 10:00 Oxygen Delivery Method Room Air 01/08/23 10:00 Height 5 ft 6 in 01/06/23 17:56 Weight 178 lb 8 oz 01/06/23 17:56 Telemetry Type Remote Telemetry 01/07/23 13:00 Telemetry Monitoring Continues 01/07/23 13:00 Telemetry Heart Rate 74 01/07/23 13:00 EKG MS Interval 0.18 01/07/23 13:00 EKG QRS Interval 0.04 L 01/07/23 13:00 EKG QT Interval 0.31 01/06/23 19:00 Telemetry Strip Reading SR 01/07/23 13:00 Imaging: EXAMINATION: AP CHEST RADIOGRAPH. HISTORY: Chest pain COMPARISON: 09/28/2022 FINDINGS: Minimal left basilar streaky opacity is identified. A medial right basilar nodular opacity is seen measuring 1.0 cm. No pneumothorax or pleural effusion is seen. The cardiomediastinal silhouette is within normal limits. IMPRESSION: Minimal left basilar atelectasis and/or consolidation. 1.0 cm medial right basilar opacity could represent a vessel seen on-end or a pulmonary nodule. Follow-up CT recommended to exclude a pulmonary nodule. EXAM: CHEST CT ANGIOGRAM WITH IV CONTRAST (AORTA) HISTORY: Chest pain. Radiating to the back TECHNIQUE: CTA acquisition of the chest from the thoracic inlet to the upper abdomen following IV contrast administration timed to filling of the aorta. IV Contrast: None. 3D/MIP/VR images were utilized. CT Dose Reduction Techniques Employed: Yes. COMPARISON: Chest x-ray dated 04/08/2023. FINDINGS: AORTA: No acute aortic pathology. Mild calcified atherosclerotic plaque. -Sinuses of Valsalva: 3.3 cm. -Ascendin.5 cm. -Arch: 2.4 cm. Proximal branch vessels are normal in configuration without significant stenosis. -Proximal Descendin.4 cm. -Distal Descendin.3 cm. CHEST: Lines, Tubes, Devices: None. Lung Parenchyma and Airways: Central airways are patent without endobronchial lesion. No focal consolidation or interstitial disease. Minimal linear atelectasis along the left major fissure. No suspicious pulmonary nodule. Pleural Space: No pleural effusion or thickening. No pneumothorax. Thoracic Inlet, Mediastinum, and Jinny: Thyroid gland is normal. Confluent lymphadenopathy or soft tissue in the left hilum superiorly surrounding the distal left main pulmonary artery and the left interlobar artery. Soft tissue at this site measures up to 2.1 cm. There is associated narrowing of the left interlobar artery and possibly the left lower lobe bronchus. There is atelectasis or mass measuring 2.8 x 3.4 cm in the left lower lobe inferior to the left hilum anteriorly. Heart, Vessels, and Pericardium: Pulmonary arteries are well opacified and demonstrate no evidence of pulmonary embolism. The heart chambers are not enlarged. There is no pericardial effusion or thickening. There is coronary artery calcification. Bones and Soft Tissues: There are degenerative changes of the spine. There is a lytic lesion with soft tissue mass measuring 2.1 x 1.3 cm arising from the anterior aspect of the right fourth rib on axial image 58. There is also a large lytic lesion in the T4 vertebral body measuring 1.7 cm on axial image 32 and sagittal image 35 with cortical breakthrough inferiorly and posteriorly consistent with pathologic fracture. Minimal displacement of fracture fragments. Minimal loss of height at this level. No other lytic lesions visualized. Chest wall soft tissues are unremarkable. Upper Abdomen: Normal visualized portions of the liver, spleen, and adrenals. Surgical clips from previous cholecystectomy. Prior gastric surgery with otilia visualized. IMPRESSION: 1. Normal CT thoracic aorta angiogram with no evidence of aortic dissection. 2. No evidence of pulmonary embolism. 3. Lytic lesion of T4 vertebral body with minimally displaced pathologic fracture suspicious for neoplasm. 4. Lytic lesion with soft tissue mass involving right fourth rib, suspicious for neoplasm. 5. No confluent lymphadenopathy or soft tissue in the left hilum superiorly and possible confluent mass in the left infrahilar region measuring up to 3.4 cm. Findings suspicious for neoplasm. 6. Minimal linear atelectasis along the left major fissure. 7. Coronary artery calcification and atherosclerosis. 8. Degenerative changes of the spine. 9. Previous cholecystectomy and gastric surgery. 10. Otherwise unremarkable CT scan of the chest. COMMUNICATION (CRITICAL RESULT): Findings were communicated with Dr. Galan on 01/06/2023 at 1612 hours by Frantz Gomez MD. EXAM: CT ABDOMEN AND PELVIS WITH CONTRAST HISTORY: Suspected intra-abdominal neoplasm. TECHNIQUE: CT acquisition of the abdomen and pelvis with IV contrast administration. CT dose reduction techniques performed: Yes. Coronal and sagittal reconstructions were performed. COMPARISON: CT chest 01/06/2023 FINDINGS: Left hilar/infrahilar mass noted. Please see CT report from 1 day prior regarding findings above the diaphragm. Hepatic steatosis. Focal fat along the fissure for the falciform ligament. Cholecystectomy. Normal spleen and pancreas. Normal adrenal glands and kidneys. Normal urinary bladder. Hysterectomy. No free fluid or free gas. Severe calcific atherosclerosis. Multiple prominent lymph nodes in the retroperitoneum, largest in the left superior periaortic region measuring up to 1.7 cm. Postsurgical changes in the stomach. No pathologically dilated small bowel loops. No evidence of acute appendicitis. Extensive colonic diverticulosis without focal diverticulitis. Right iliac wing lytic bone metastasis measuring up to 2.6 cm. Left proximal femoral shaft 1.7 cm lytic metastasis. Impression: Please see CT chest report 1 day prior for findings above the diaphragm. Several lytic bone metastases are seen including right iliac wing and left proximal femoral shaft; would recommend non-weightbearing status. Left retroperitoneal lymph node, suspicious for metastasis. Hepatic steatosis and colonic diverticulosis. Critical findings discussed with the patients nurse Celestino by Dr. Carter via telephone on 4:00 p.m. on 01/07/2023. EXAM: CT HEAD WITHOUT AND WITH INTRAVENOUS CONTRAST 01/07/2023. SAGITTAL AND CORONAL REFORMATTED IMAGES OBTAINED HISTORY: Question intracranial metastasis COMPARISON: None. FINDINGS: There is no evidence of intracranial hemorrhage. The midline is maintained. There is no hydrocephalus. Generalized atrophy. Chronic small vessel ischemic change. There is no pathologic postcontrast enhancement. No cerebellar tonsillar ectopia. Evaluation of the calvarium shows no fracture. The mastoid air cells are normally pneumatized. IMPRESSION: No acute intracranial abnormality. No evidence of intracranial metastasis. Lab Results Last 24 Hours: 01/08/23 05:10 WBC 5.67 RBC 3.65 L Hgb 12.2 Hct 38.1 MCV 104.4 H MCH 33.4 H MCHC 32.0 RDW Coeff of Marco 14.1 Plt Count 194 Immature Gran % (Auto) 0.2 Neut % (Auto) 49.2 Lymph % (Auto) 37.9 Karnes % (Auto) 9.7 Eos % (Auto) 2.5 Baso % (Auto) 0.5 Neut # (Auto) 2.8 Lymph # (Auto) 2.2 Karnes # (Auto) 0.6 Eos # (Auto) 0.1 Baso # (Auto) 0.0 Immature Gran # (Auto) 0.0 Sodium 135.9 Potassium 4.27 Chloride 101.6 Carbon Dioxide 30.6 H Anion Gap 7.97 BUN 5.8 L Creatinine 0.68 Estimated GFR (MDRD) 86.00 BUN/Creatinine Ratio 8.52 Glucose 95.4 Calcium 9.00 Total Bilirubin 0.49 AST 20.2 ALT 11.6 Alkaline Phosphatase 90.1 Total Protein 6.15 L Albumin 3.44 L Globulin 2.71 Albumin/Globulin Ratio 1.26 Discharge Instructions Discharge Planning: Discharge Planning > [address] Magalys Yu. Discharge Medications: Medications at Discharge (Home Meds & RX) hydrocodone 5 mg-acetaminophen 325 mg tablet 1 tab PO Q6HR PRN pain (scale score 7-10) #28 tabs 01/08/23 ondansetron 4 mg disintegrating tablet 4 mg PO Q6H PRN nausea and vomiting #21 tabs 01/08/23 Discharge Plan Discharge Discharge Orders: Discharge Patient (ONCE); Ordered 01/08/23 Ordered By: BRANDON JEFF Activity Restrictions/Additional Instructions: DISCHARGE TO HOME DX: CHEST PAIN, LYTIC BONE LESIONS, HILAR MASS PHARMACY: [facility] DIET: NORMAL ACTIVITY: NON WEIGHT BEARING OF LEFT LEG RECOMMEND OTC STOOL SOFTENERS WHILE TAKING PAIN PILLS SUCH COLACE TWICE A DAY AND MIRALAX ONCE DAILY. YOU HAVE A FOLLOW UP APPOINTMENT WITH DR WILLSON AT THE [facility] ON WednesdayJanuary AT 1PM. SHOULD YOU HAVE ANY QUESTIONS OR NEED TO RESCHEDULE YOU CAN CONTACT THEIR OFFICE AT [phone]. A REFERRAL HAS BEEN SENT TO DR. ALBERTO PINEDA (CARDIOTHORACIC SURGEON) AT [facility]. ADDRESS: [address] [place] [address] [address] [place] [id number]. PHONE NUMBER: [phone]. PLEASE CALL HIS OFFICE IF YOU DO NOT RECEIVE A PHONE CALL NEXT WEEK. YOU HAVE AN ORTHOPEDIC APPOINTMENT IN [place], [place] AT THE [facility] ON December AT 1:20PM. PLEASE ARRIVE 15 MINUTES EARLY. TAKE YOU IMAGING DISC WITH YOU FOR THEM TO REVIEW. ADDRESS: [address] [place] [id number]. PHONE NUMBER: [phone] Patient Disposition: HOME SELF-CARE Prescriptions: New hydrocodone-acetaminophen 5-325 mg Tablet 1 tab PO Q6HR PRN (Reason: pain (scale score 7-10)) Qty: 28 0RF Rx Instructions: 7 DAY SUPPLY ondansetron 4 mg tablet,disintegrating 4 mg PO Q6H PRN (Reason: nausea and vomiting) Qty: 21 0RF Did you review [place] THERMAL TECHNICIAN for ALL controlled substances?: Yes Discussed opioids are addictive and Narcan is available by prescription or from pharmacy.: Yes Condition: Stable
== END 2023-01-08 13:16 | disposition home or self-care (01) ==
LOC: ED 13:46 → MEDSURG B 13:46
PROVIDERS: ADMIT Hospitalist; ATTEND Physician Assistant
DX: R07.9 Chest pain, unspecified; Z51.81 Encounter for therapeutic drug level monitoring; M84.48XA Pathological fracture, other site, initial encounter for fracture; R42 Dizziness and giddiness; R22.2 Localized swelling, mass and lump, trunk; R06.02 Shortness of breath; M89.8X0 Other specified disorders of bone, multiple sites; R79.1 Abnormal coagulation profile; M54.2 Cervicalgia; M54.6 Pain in thoracic spine; Z79.899 Other long term (current) drug therapy